=== PATIENT | male | born 1985 | race Caucasian/White ===

== ENCOUNTER 2017-04-03 04:18 | Emergency (ER) | payer SELFPAY ==
[~2017-04-03] VITALS: Ht 165.1 cm; Wt 62.0 kg
[2017-04-03 04:44] VITALS: BP 138/87
== END 2017-04-03 10:23 | disposition left against medical advice (07) ==
LOC: ER 04:18
DX: L08.9 Local infection of the skin and subcutaneous tissue, unspecified (principal); Z53.21 Procedure and treatment not carried out due to patient leaving prior to being seen by health care provider

== ENCOUNTER 2024-02-24 02:31 | Inpatient (IN) | payer SELFPAY ==
[~2024-02-24] VITALS: Ht 170.2 cm; Wt 61.2 kg
[2024-02-24] MEDS: ACETAMINOPHEN 325MG TABLET PO ONE (03:16)
[2024-02-24] MEDS: SODIUM CHLORIDE 0.9% (SEPSIS BOLUS) IV ONE (04:16)
[2024-02-24] MEDS: VANCOMYCIN 1G PREMIX 200 ML IV SCH (04:16)
[2024-02-24] MEDS: SODIUM CHLORIDE 0.9% 1,000 ML IV ONE (04:18)
[2024-02-24] MEDS: KETOROLAC 30MG/ML VIAL IV STA (04:18)
[2024-02-24 04:41] LABS: HEMATOCRIT. 41.8 % (42.0-52.0); HEMOGLOBIN. 14.4 g/dL (14.0-18.0); MEAN CORPUSCULAR HEMOGLOBIN 31.4 pg (28.0-32.0); MEAN CORPUSCULAR HGB CONC 34.5 g/dL (31.0-37.0); MEAN CORPUSCULAR VOLUME 91.1 fL (80.0-94.0); MEAN PLATELET VOLUME 8.4 fl (7.4-10.4); PLATELET 157 x1000/uL (130-400); RED BLOOD CELL COUNT 4.59 mill/uL (4.7-6.1); RED CELL DISTRIBUTION WIDTH 11.7 % (11.6-14.6); WHITE BLOOD COUNT 20.1 x1000/uL (4.5-11.0)
[2024-02-24 04:43] LABS: DIFFERENTIAL COMMENT 1
[2024-02-24 04:47] LABS: CHLORIDE 88 mEq/L (98-107); POTASSIUM 3.1 mEq/L (3.5-5.1); SODIUM 122 mEq/L (136-145)
[2024-02-24 04:48] LABS: CALCIUM 9.1 mg/dL (8.7-10.4); CARBON DIOXIDE 24 mEq/L (21-32)
[2024-02-24 04:53] LABS: CREATININE 0.8 mg/dL (0.6-1.3); GLUCOSE 159 mg/dL (70-105); UREA NITROGEN BLOOD 11 mg/dL (9-23)
[2024-02-24 04:55] LABS: ALANINE AMINOTRANSFERASE 57 IU/L (10-49); ASPARTATE AMINOTRANSFERASE 79 IU/L (<34); BILIRUBIN TOTAL 1.2 mg/dL (0.1-1.0); PROTEIN TOTAL 7.1 g/dL (6.0-8.3)
[2024-02-24 05:13] LABS: PLATELET ESTIMATE NORMAL
[2024-02-24] MEDS ORDERED: CLINDAMYCIN 600 MG in DEXTROSE 5% WATER 50 ML IV ONE (05:45)
[2024-02-24] MEDS: PIPERACILLIN/TAZO 3.375G/50ML IV NR (06:35)
[2024-02-24] MEDS: CLINDAMYCIN 600MG PREMIX 50 ML IV NR (07:10)
[2024-02-24] MEDS ORDERED: ONDANSETRON HCL 4MG/2ML INJ IV PRN (07:45)
[2024-02-24] MEDS ORDERED: KETOROLAC 30MG/ML VIAL IV PRN (07:45)
[2024-02-24] MEDS ORDERED: ACETAMINOPHEN 325MG TABLET PO PRN (07:45)
[2024-02-24 08:24] LABS: CLARITY URINE CLEAR (CLEAR); COLOR URINE YELLOW (YELLOW); GLUCOSE URINE NEGATIVE (NEGATIVE); KETONES URINE NEGATIVE (NEGATIVE); LEUKOCYTE ESTERASE URINE NEGATIVE (NEGATIVE); NITRITE URINE NEGATIVE (NEGATIVE); OCCULT BLOOD URINE NEGATIVE (NEGATIVE); PH URINE 6.5 (4.5-8.0); PROTEIN URINE TRACE (NEGATIVE); SPECIFIC GRAVITY URINE 1.007 (1.005-1.030)
[2024-02-24 08:41] LABS: RBC URINE 0-2 /hpf (0-2); WBC URINE 0-2 /hpf (0-2)
[2024-02-24 08:44] LABS: SQUAMOUS EPITHELIAL CELL URINE RARE /lpf (RARE/1+)
[2024-02-24 08:45] LABS: BACTERIA URINE NONE SEEN
[2024-02-24] MEDS ORDERED: PIPERACILLIN/TAZO 3.375G/100ML 100 ML IV SCH (09:00)
[2024-02-24] MEDS: PIPERACILLIN/TAZO 3.375G/50ML 50 ML IV SCH (14:24)
[2024-02-24] MEDS: PIPERACILLIN/TAZO 3.375G/100ML IV SCH (22:08)
[2024-02-24] MEDS: LORAZEPAM 2MG/ML INJ IV PRN (22:08)
[2024-02-24 22:58] VITALS: BP 113/78; PULSE 95; RESP 18; TEMP 37.252
[2024-02-25] VITALS: BP 106/62; PULSE 80; RESP 18; TEMP 36.22512; O2SAT 98
[2024-02-25] MEDS: POTASSIUM CHLORIDE 20MEQ TABLET SR PO NR (03:24)
[2024-02-25 04:00] VITALS: BP 112/78; PULSE 88; RESP 18; TEMP 36.22512; O2SAT 100
[2024-02-25 08:00] VITALS: BP 128/88; PULSE 89; RESP 20; TEMP 36.22512; O2SAT 100
[2024-02-25 08:24] LABS: HEMATOCRIT 41.6 % (42.0-52.0); HEMOGLOBIN 14.3 g/dL (14.0-18.0); MEAN CORPUSCULAR HEMOGLOBIN 31.7 pg (28.0-32.0); MEAN CORPUSCULAR HGB CONC 34.3 g/dL (31.0-37.0); MEAN CORPUSCULAR VOLUME 92.4 fL (80.0-94.0); PLATELET 148 x1000/uL (130-400); RED CELL DISTRIBUTION WIDTH 12.1 % (11.6-14.6); WHITE BLOOD COUNT 13.9 x1000/uL (4.5-11.0)
[2024-02-25 08:30] LABS: CHLORIDE 97 mEq/L (98-107); POTASSIUM 3.3 mEq/L (3.5-5.1)
[2024-02-25 08:31] LABS: CARBON DIOXIDE 28 mEq/L (21-32)
[2024-02-25 08:32] LABS: CALCIUM 8.4 mg/dL (8.7-10.4)
[2024-02-25 08:36] LABS: CREATININE 0.7 mg/dL (0.6-1.3); GLUCOSE 103 mg/dL (70-105); UREA NITROGEN BLOOD 10 mg/dL (9-23)
[2024-02-25 08:40] LABS: SODIUM 131 mEq/L (136-145)
[2024-02-25 12:00] VITALS: BP 126/72; PULSE 98; RESP 20; TEMP 36.55848; O2SAT 100
[2024-02-25 16:00] VITALS: BP 123/85; PULSE 85; RESP 18; TEMP 36.114; O2SAT 100
[2024-02-25] MEDS ORDERED: AMOX1TAB16 MT (17:44)
[2024-02-25 20:00] VITALS: BP 124/84; PULSE 95; RESP 18; TEMP 36.22512; O2SAT 95
[2024-02-26 04:00] VITALS: BP 137/91; PULSE 89; RESP 18; TEMP 36.22512; O2SAT 97
[2024-02-26 08:00] VITALS: BP 141/93; PULSE 77; RESP 20; TEMP 36.3918; O2SAT 99
[2024-02-26 12:00] VITALS: BP 131/88; PULSE 86; RESP 20; TEMP 36.50292; O2SAT 99
[2024-02-26 15:08] VITALS: BP 131/88; PULSE 86; TEMP 97.7; O2SAT 99
== END 2024-02-26 15:43 | disposition home or self-care (01) | DRG 383 ==
LOC: ER 02:31 → 6WST 04:49
PROVIDERS: ADMIT Internal Medicine; ATTEND Internal Medicine
DX: L03.113 Cellulitis of right upper limb (principal); F10.139 Alcohol abuse with withdrawal, unspecified; Y90.9 Presence of alcohol in blood, level not specified; I10 Essential (primary) hypertension
CPT/HCPCS: 36415; 71045; 73130; 73200; 80048; 80053; 81003; 83605; 84145; 85025; 85027; 87077; 87186; 99291; J1885; J2060; J2543; J3370; J3490; J7030; J7060